=== PATIENT | female | born 1960 | race Caucasian/White ===

== ENCOUNTER → 2017-04-04 | Outpatient (CLI) | payer BC ==
--- NOTE | 2017-04-05 18:34 | Diagnostic Imaging Report ---
INDICATION: Screening mammogram. COMPARISON: 05/18/2015 and April 11, 2011 The current study was also evaluated with a Computer Aided Detection (CAD) system. FINDINGS: CC and MLO views of the breasts were obtained. The breast tissue is heterogeneously dense, which may lower the sensitivity of mammography. Right breast: Asymmetric density is identified within the medial half of the right breast near the junction of middle and posterior depths. This has been previously evaluated on prior exams. It is stable. There is no dominant mass, suspicious cluster of microcalcifications or other evidence to indicate malignancy. There has been no significant change from prior mammograms. Left breast: Focal asymmetry is also seen within the upper outer quadrant of the left breast and has been previously evaluated with diagnostic imaging. This appears stable compared to 05/08/2015. There does, however, appear to be a new or increased in size. Focal asymmetry is slightly more anteriorly, also within the upper outer quadrant. No suspicious microcalcifications are seen. IMPRESSION: 1. Interval change in focal asymmetry involving the upper outer quadrant of the left breast. Further characterization with focused sonographic evaluation is recommended. 2. Stable appearance of the right breast. ACR BI-RADS Category 0: Incomplete. (Needs additional imaging evaluation). Result letter will be mailed to the patient. Follow-up: As above NOTE: Keep in mind that about 10% of breast cancers will not be identified on mammography. Further evaluation of a palpable mass not seen on mammography should be based on clinical grounds. Dictated by: Dictated on workstation # [id number]
== END ==
LOC: RAD 07:57
PROVIDERS: ATTEND Family Medicine
DX: Z12.31 Encounter for screening mammogram for malignant neoplasm of breast (principal); N64.89 Other specified disorders of breast

== ENCOUNTER → 2017-04-19 | Outpatient (CLI) | payer BC ==
--- NOTE | 2017-04-19 21:45 | Diagnostic Imaging Report ---
INDICATION: A recent screening study showed two adjacent left breast nodules, one of which was present on old exam, the other is new. She returns for additional diagnostic views and ultrasound. EXAMINATION: Left diagnostic mammogram. FINDINGS: Exam confirms adjacent circumscribed well-defined spherical configured nodules in the left breast, laterally, at the mid depth. Mammographically, these are suggestive of benign cysts; however, we are performing ultrasound as further evaluation. That study is currently pending and will be dictated separately. IMPRESSION: Adjacent left breast nodularity confirmed suggestive of but inconclusive of cysts. Ultrasound is pending, will be dictated separately. BI-RADS category 0, left breast ultrasound pending. ACR BI-RADS Category 0: Incomplete. (Needs additional imaging evaluation). Result letter will be mailed to the patient. Note: At least 10% of breast cancer is not imaged by mammography. Dictated by: Dictated on workstation # [id number]
--- NOTE | 2017-04-19 21:48 | Diagnostic Imaging Report ---
PROCEDURE: US breast limited, left. TECHNIQUE: Multiple realtime grayscale images were obtained over the left breast in various projections. INDICATION: New left breast nodularity. FINDINGS: Sonographic surveillance of the left breast reveals multiple anechoic simple appearing cysts, the largest measured a diameter of 1.2 cm with an immediately adjacent partly elongated cyst, measuring 1 cm. Additional regional subcentimeter clustered cysts in the 2 o'clock orientation are noted. No complex, solid or vascularized lesion. No evidence for malignancy. Assuming the absence of any adverse interval clinical change, the patient may be returned to routine bilateral screening, next bilateral exam will be due in one years' time. IMPRESSION: BI-RADS category 2, Benign simple cyst corresponds to the newly apparent mammographic nodularity. ACR BI-RADS Category 2: Benign findings. Result letter will be mailed to the patient. Note: At least 10% of breast cancer is not imaged by mammography. Dictated by: Dictated on workstation # [id number]
== END ==
LOC: RAD 09:23
PROVIDERS: ATTEND Family Medicine
DX: N64.89 Other specified disorders of breast (principal); Z92.89 Personal history of other medical treatment
CPT/HCPCS: 76642; G0206